=== PATIENT | female | born 1955 | race Caucasian/White ===

== ENCOUNTER → 2021-10-14 16:37 | Outpatient (BNVA) | payer OTHER, SELFPAY | PROVIDERS: Visit Provider Emergency Medicine | DX: N39.0 Urinary tract infection, site not specified (principal) | CPT/HCPCS: 81000 ==

== ENCOUNTER 2022-03-04 18:22 | Emergency (ER) | payer OTHER, MEDICARE, SELFPAY ==
[2022-03-04 18:37] VITALS: BP 169/88; PULSE 87; RESP 16; TEMP 36.6; O2SAT 98
--- NOTE | 2022-03-04 18:54 | ED_ITS ---
HPI - Abdominal Pain General: Chief Complaint: Abdominal Pain Stated Complaint: Right side pain Time Seen by Provider: 03/04/22 18:54 History of Present Illness: Ms. 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 Reports gradual onset of symptoms without known specific provoking event approximately 2 to 3 weeks ago. Since that time symptoms have persisted and continued to intensify. Mostly right flank and right lower quadrant. Worse with laying down. No associated other systemic signs of illness. No other specific changes in health, exacerbating, or alleviating factors identified. Pertinent past history: other Onset (ago): week(s) Pain Consistency: constant Location: RLQ and R flank Severity: severe Quality: aching and sharp Exacerbating factors: eating, movement and other Relieving factors: nothing Review of Systems General: Reports: 10 or more systems reviewed and unremarkable except in HPI and below PFSH ED PFSH: Medical History (Updated 03/17/22 @ 20:12 by J Carlos Miller MD) History of malignant neoplasm of appendix Surgical History (Updated 03/17/22 @ 20:12 by J Carlos Miller MD) History of appendectomy Family History Father Diabetes Mother Diabetes Social History Smoking and tobacco status: never smoked Alcohol intake: never Female Reproductive History: Spontaneous abortions: No Physical Exam Const: COMMON NORMALS: alert GENERAL APPEARANCE: cooperative and well developed HENMT: COMMON NORMALS: normocephalic and atraumatic HEAD & SCALP: normocephalic and atraumatic Eye: COMMON NORMALS: conjunctivae normal CONJUNCTIVA: Yes conjunctivae normal SCLERA: sclerae normal Neck/C-Spine: COMMON NORMALS: supple GENERAL: Yes trachea midline Resp: COMMON NORMALS: normal respiratory effort EFFORT & INSPECTION: Yes able to speak in complete sentences Cardio: COMMON NORMALS: regular rate and regular rhythm RATE: regular rate RHYTHM: regular rhythm GI: COMMON NORMALS: Soft to palpation PALPATION: Yes Soft to palpation, Yes Tenderness to palpation present (GI), Yes Guarding due to palpation present (GI) and No Rigid due to palpation : COMMON NORMALS: Yes no CVA tenderness BLADDER/KIDNEY EXAM: Yes no CVA tenderness Back/Pelvis: COMMON NORMALS: no CVA tenderness Extremity: GENERAL: Yes normal exam except as noted and No edema Neuro: COMMON NORMALS: moves all extremities SENSORIUM/ORIENTATION: Yes alert and No Orientation impaired Psych: COMMON NORMALS: mental status grossly normal and Normal thought process present THOUGHT PROCESS: Normal thought process present Course Vital Signs: Vital signs: Vital Signs Temperature 97.8 F 03/04/22 18:37 Pulse Rate 97 03/04/22 21:00 Respiratory Rate 20 H 03/04/22 21:00 Blood Pressure 162/98 03/04/22 21:00 Pulse Oximetry 96 03/04/22 21:00 Oxygen Delivery Me thod 03/04/22 21:00 MDM - Abdominal Pain Medical Decision Making 66-year-old lady with history of appendiceal cancer status post resection presenting with abdominal pain. Exam as above. Tenderness to palpation without evidence of acute surgical abdomen on abdominal exam. Labs with no significant hematologic or metabolic abnormalities. No evidence of urinary tract infection. I discussed risks and benefits of additional imaging which I feel is appropriate given patient's history. CT abdomen pelvis without significant abnormality to cause symptoms. She does have constipation. Other incidental findings discussed. Patient improved with analgesia. Most likely cause of patient's symptoms is unspecified abdominal pain which does not require admission at this time. The results of ED evaluation were discussed with the patient including prescriptions and/or symptomatic cares (if applicable) including appropriate and responsible use, followup plan, and return precautions. The patient verbalized understanding and felt safe for discharge. Medical Records I reviewed the patient's medical records. Lab Data I reviewed the patient's lab results. 03/04/22 19:44 03/04/22 19:44 Labs/Radiology: Radiology Impressions Abdomen/Pelvis CT 03/04/22 19:47 IMPRESSION: 1. Negative for focal acute inflammatory process in the abdomen or pelvis. 2. Cholecystectomy. 3. Constipation. 4. Left kidney parapelvic renal cysts along with several parenchymal cysts, negative for follow-up advised. COMMENTS: Consistent with the [employer]'s Incidental Findings Committee white paper (J Am Jerardo Radiol 2018): Any incidental renal lesion less than 1 cm or classified as too small to characterize, or any incidental cystic renal lesion characterized as simple-appearing, is likely benign. No follow-up imaging is recommended for these lesions per consensus recommendations based on imaging criteria. Laboratory Results WBC 5.4 10^3/uL (4.0-10.0) 03/04/22 19:44 RBC 4.88 10^6/uL (4.1-5.3) 03/04/22 19:44 Hgb 15.0 g/dL (11.5-15.3) 03/04/22 19:44 Hct 46.9 % (37.0-47.0) 03/04/22 19:44 MCV 96.1 fl (81-99) 03/04/22 19:44 MCH 30.7 pg (28.0-34.0) 03/04/22 19:44 MCHC 32.0 g/dL (30.0-36.0) 03/04/22 19:44 RDW 14.0 % (12.1-15.1) 03/04/22 19:44 Plt Count 272 10^3/cmm (130-400) 03/04/22 19:44 MPV 11.2 fL (7.4-10.4) H 03/04/22 19:44 Neut % (Auto) 44.5 % 03/04/22 19:44 Lymph % (Auto) 43.4 % 03/04/22 19:44 [place] % (Auto) 10.1 % 03/04/22 19:44 Eos % (Auto) 1.1 % 03/04/22 19:44 Baso % (Auto) 0.7 % 03/04/22 19:44 Neut # (Auto) 2.38 10^3/uL (1.8-7.7) 03/04/22 19:44 Lymph # (Auto) 2.3 10^3/uL (0.8-4.8) 03/04/22 19:44 [place] # (Auto) 0.5 10^3/uL (0.2-0.9) 03/04/22 19:44 Eos # (Auto) 0.1 10^3/uL (0.0-0.8) 03/04/22 19:44 Baso # (Auto) 0.0 10^3/uL (0.0-0.1) 03/04/22 19:44 Nucleated RBC % (auto) 0 % 03/04/22 19:44 Nucleated RBCs # 0.0 /100WBC 03/04/22 19:44 Sodium 136 mmol/L (136-145) 03/04/22 20:43 Potassium 4.0 mmol/L (3.5-5.1) 03/04/22 20:43 Chloride 101 mmol/L (98-107) 03/04/22 20:43 Carbon Dioxide 27 mmol/L (22-29) 03/04/22 20:43 Anion Gap 12.0 (5-19) 03/04/22 20:43 BUN 12 mg/dL (8-23) 03/04/22 20:43 Creatinine 0.7 mg/dL (0.5-0.9) 03/04/22 20:43 GFR Calculation 83.7 mL/min (90-130) L 03/04/22 20:43 Glucose 90 mg/dL (65-115) 03/04/22 20:43 Calculated Osmolality 281 mOsm/kg (285-295) L 03/04/22 20:43 Calcium 9.0 mg/dL (8.5-10.5) 03/04/22 20:43 Total Bilirubin 0.5 mg/dL (0.15-1.2) 03/04/22 20:43 AST 19 U/L (0-32) 03/04/22 20:43 ALT 19 U/L (0-33) 03/04/22 20:43 Alkaline Phosphatase 60 U/L (35-105) 03/04/22 20:43 Total Protein 6.7 g/dL (6.6-8.7) 03/04/22 20:43 Albumin 3.9 g/dL (3.5-5.2) 03/04/22 20:43 Globulin 2.8 g/dL (1.3-4.6) 03/04/22 20:43 Lipase 30 U/L (13-60) 03/04/22 20:43 Urine Color Yellow (Yellow) 03/04/22 19:20 Urine Appearance Clear (CLEAR) 03/04/22 19:20 Urine pH 6.5 (5-7) 03/04/22 19:20 Ur Specific [place] 1.010 (1.005-1.030) 03/04/22 19:20 Urine Protein Neg (Negative) 03/04/22 19:20 Urine Glucose (UA) Norm (Normal) 03/04/22 19:20 Urine Ketones Negative (Negative) 03/04/22 19:20 Urine Blood Neg (Negative) 03/04/22 19:20 Urine Nitrate Negative (Negative) 03/04/22 19:20 Urine Bilirubin Neg (Negative) 03/04/22 19:20 Urine Urobilinogen Norm mg/dL (Negative) 03/04/22 19:20 Ur Leukocyte Esterase Negative (Negative) 03/04/22 19:20 Discharge Plan Discharge Patient Disposition: Home Clinical Impression: Abdominal pain, Constipation Condition: Stable Discharge Orders: Discharge ED (Routine); Ordered 03/04/22 Ordered By: J Carlos Miller Discharge Diet: Advance as tolerated and Clear Liquid Discharge Activity: Increase activity as tolerated Patient Instructions: Constipation (ED), Abdominal Pain (ED), Opioid Safety Activity Restrictions/Additional Instructions: Thank you for visiting the emergency department. You were seen evaluated for right-sided abdominal pain. The exact cause of your symptoms is unclear though does not appear to need inpatient management at this time. CT did show evidence of constipation. I recommend MiraLAX 1 capful 3 times per day for the next 2 days and then adjust as needed between 1 and 3 times per day for multiple applesauce consistency stools per day. Please ensure that you are staying hydrated. You may use [id number] medications such as acetaminophen and ibuprofen for pain however please do not exceed the daily recommended dosage as listed on the packaging and please keep in mind that many namebrand medications contain the same active ingredients. Please follow-up with your primary care provider. Return to the emergency department for uncontrolled symptoms or anything else that you are concerned about a feel needs emergency department evaluation. Coding Level of Care Code ED [employer] for [employer]
[2022-03-04 19:46] LABS: Add Urine Microscopic? NO; Charge for UA Resulting for Rev
--- NOTE | 2022-03-04 19:47 | CTR_ITS ---
PROCEDURE INFORMATION: Exam: CT Abdomen And Pelvis With Contrast Exam date and time: 03/04/2022 8:25 PM Age: 66 years old Clinical indication: Abdominal pain; Localized; Right; Prior surgery; Surgery type: Gb. Hysterectomy. Appendix. Patient HX: C/O RT sided abd pain. History of appendiceal cancer. ; Additional info: Rlq pain, R flank pain, HX appendiceal CA TECHNIQUE: Imaging protocol: Computed tomography of the abdomen and pelvis with contrast. Radiation optimization: All CT scans at this facility use at least one of these dose optimization techniques: automated exposure control; mA and/or kV adjustment per patient size (includes targeted exams where dose is matched to clinical indication); or iterative reconstruction. Contrast material: OMNI 350; Contrast volume: 100 ml; Contrast route: INTRAVENOUS (IV); COMPARISON: No relevant prior studies available. RADIATION DOSE METRICS: Total DLP (mGy-cm): 726.7 FINDINGS: Liver: Normal. No mass. Gallbladder and bile ducts: Cholecystectomy. Pancreas: Normal. No ductal dilation. Spleen: Normal. No splenomegaly. Adrenal glands: Normal. No mass. Kidneys and ureters: Left kidney parapelvic renal cysts along with several parenchymal cysts, negative for follow-up advised. Stomach and bowel: Constipation. Appendix: No evidence of appendicitis. Intraperitoneal space: Unremarkable. No free air. No significant fluid collection. Vasculature: Unremarkable. No abdominal aortic aneurysm. Lymph nodes: Unremarkable. No enlarged lymph nodes. Urinary bladder: Unremarkable as visualized. Reproductive: Unremarkable as visualized. Bones/joints: Unremarkable. No acute fracture. Soft tissues: Unremarkable. CT/CT abdomen pelvis w con* [id number] IMPRESSION: 1. Negative for focal acute inflammatory process in the abdomen or pelvis. 2. Cholecystectomy. 3. Constipation. 4. Left kidney parapelvic renal cysts along with several parenchymal cysts, negative for follow-up advised. COMMENTS: Consistent with the [employer]'s Incidental Findings Committee white paper (J Am Jerardo Radiol 2018): Any incidental renal lesion less than 1 cm or classified as too small to characterize, or any incidental cystic renal lesion characterized as simple-appearing, is likely benign. No follow-up imaging is recommended for these lesions per consensus recommendations based on imaging criteria.
[2022-03-04 19:55] LABS: Bilirubin Urine Neg (Negative); Blood Urine Neg (Negative); Glucose Urine UA Norm (Normal); Ketones Urine Negative (Negative); Leukocyte Esterase Urine Negative (Negative); Nitrate Urine Negative (Negative); Protein Urine Neg (Negative); Urine Appearance Clear (CLEAR); Urine Color Yellow (Yellow); Urobilinogen Urine Norm (Negative); pH Urine 6.5 (5-7)
[2022-03-04 19:57] LABS: Basophils % 0.7 %; Eosinophils # 0.1 10^3/uL (0.0-0.8); Eosinophils % 1.1 %; Hematocrit 46.9 % (37.0-47.0); Lymphocytes # 2.3 10^3/uL (0.8-4.8); Lymphocytes % 43.4 %; Mean Corpuscular Hemoglobin 30.7 pg (28.0-34.0); Mean Corpuscular Volume 96.1 fl (81-99); Mean Platelet Volume 11.2 fL (7.4-10.4); Monocytes # 0.5 10^3/uL (0.2-0.9); Monocytes % 10.1 %; Neutrophils # 2.38 10^3/uL (1.8-7.7); Neutrophils % 44.5 %; Nucleated Red Blood Cells % 0 %; Platelet Count 272 10^3/cmm (130-400); Red Blood Count 4.88 10^6/uL (4.1-5.3); White Blood Count 5.4 10^3/uL (4.0-10.0)
[2022-03-04 20:00] VITALS: BP 144/85; PULSE 79; RESP 17; O2SAT 96
[2022-03-04] MEDS: iohexol 350 mg/mL 500 mL Btl (per mL) IV (20:24)
[2022-03-04] MEDS: fentaNYL 50 mcg/mL INJ 2mL IVP (20:57)
[2022-03-04 21:00] VITALS: BP 162/98; PULSE 97; RESP 20; O2SAT 96
[2022-03-04 21:18] LABS: Alanine Aminotransferase 19 U/L (0-33); Albumin Level 3.9 g/dL (3.5-5.2); Alkaline Phosphatase 60 U/L (35-105); Aspartate Amino Transferase 19 U/L (0-32); Blood Urea Nitrogen 12 mg/dL (8-23); Carbon Dioxide 27 mmol/L (22-29); Chloride 101 mmol/L (98-107); Creatinine Clr Calc Pharmacy 67.5411; Globulin 2.8 g/dL (1.3-4.6); Glomerular Filtration Rate 83.7 mL/min (90-130); Glucose 90 mg/dL (65-115); Lipase 30 U/L (13-60); Osmolality Calculated 281 mOsm/kg (285-295); Sodium 136 mmol/L (136-145); Total Bilirubin 0.5 mg/dL (0.15-1.2); Total Protein 6.7 g/dL (6.6-8.7)
== END 2022-03-04 21:48 | disposition home or self-care (01) ==
PROVIDERS: Emergency Provider Emergency Medicine
DX: K59.00 Constipation, unspecified (principal); R10.9 Unspecified abdominal pain; Z85.89 Personal history of malignant neoplasm of other organs and systems
CPT/HCPCS: 36415; 74177; 80053; 81003; 83690; 85025; 96374; 99285; J3010; Q9967

== ENCOUNTER 2022-12-13 06:00 | Outpatient (CLI) | payer BC, OTHER, MEDICARE, SELFPAY | END 2022-12-13 06:01 | LOC: SOT 12-16 08:55 | PROVIDERS: Visit Provider Student in an Organized Health Care Education/Training Program | DX: Z46.89 Encounter for fitting and adjustment of other specified devices (principal); S62.630D Displaced fracture of distal phalanx of right index finger, subsequent encounter for fracture with routine healing; X58.XXXD Exposure to other specified factors, subsequent encounter | CPT/HCPCS: 97760; L3925 ==

== ENCOUNTER → 2022-12-13 08:44 | Outpatient (BNVA) | payer BC, OTHER, MEDICARE, SELFPAY | PROVIDERS: Referring Provider Nurse Practitioner; Visit Provider Student in an Organized Health Care Education/Training Program | DX: S62.630A Displaced fracture of distal phalanx of right index finger, initial encounter for closed fracture (principal); M20.011 Mallet finger of right finger(s); W23.0XXA Caught, crushed, jammed, or pinched between moving objects, initial encounter | CPT/HCPCS: 73130 ==

== ENCOUNTER → 2023-02-13 11:43 | Outpatient (BNVA) | payer MEDICARE, OTHER, SELFPAY | PROVIDERS: PCP Nurse Practitioner; Visit Provider Student in an Organized Health Care Education/Training Program | DX: M20.011 Mallet finger of right finger(s) (principal) | CPT/HCPCS: 73130; 99213 ==

== ENCOUNTER 2023-02-14 06:00 | Outpatient (RCR) | payer OTHER, MEDICARE, SELFPAY | END 2023-03-06 23:59 | disposition home or self-care (01) | LOC: SOT 06:00 | PROVIDERS: Visit Provider Student in an Organized Health Care Education/Training Program | DX: M20.011 Mallet finger of right finger(s) (principal) | CPT/HCPCS: 97022; 97110; 97140; 97165 ==

== ENCOUNTER 2023-03-07 06:00 | Outpatient (RCR) | payer OTHER, MEDICARE, SELFPAY | END 2023-04-06 23:59 | disposition home or self-care (01) | LOC: SOT 06:00 | PROVIDERS: Visit Provider Student in an Organized Health Care Education/Training Program | DX: M20.011 Mallet finger of right finger(s) (principal) | CPT/HCPCS: 97022; 97110; 97140 ==

== ENCOUNTER → 2024-08-26 12:55 | Outpatient (BNVA) | payer MEDICARE, SELFPAY | PROVIDERS: Visit Provider Dermatology | DX: L72.0 Epidermal cyst (principal); D22.39 Melanocytic nevi of other parts of face; L82.1 Other seborrheic keratosis; D36.14 Benign neoplasm of peripheral nerves and autonomic nervous system of thorax; D48.5 Neoplasm of uncertain behavior of skin | CPT/HCPCS: 11102; 99203 ==

== ENCOUNTER → 2025-02-25 10:13 | Outpatient (BNVA) | payer MEDICARE, SELFPAY | PROVIDERS: Visit Provider Nurse Practitioner | DX: R39.89 Other symptoms and signs involving the genitourinary system (principal) | CPT/HCPCS: 81000; 87086 ==